=== PATIENT | male | born 1970 | race African-American/Black ===

== ENCOUNTER → 2016-12-20 | Outpatient (REF) | payer OTHER ==
[2016-12-20 12:46] LABS: LUTEINIZING HORMONE 4.3 mIU/mL (1.5-9.3); PROLACTIN 7.5 NG/ML (2.1-17.7)
[2016-12-20 12:47] LABS: ESTRADIOL 37.2 PG/ML (<39.8); FOLLICLE STIMULATING HORMONE 3.3 mIU/mL (1.4-18.1)
[2016-12-22 00:07] LABS: SEX HORMONE BINDING GLOBULIN 13.8 nmol/L (16.5-55.9)
== END ==
LOC: M LABSMT 09:01
PROVIDERS: ATTEND Nurse Practitioner Women's Health
DX: E29.1 Testicular hypofunction (principal)

== ENCOUNTER → 2017-03-31 | Outpatient (REF) | payer OTHER ==
[2017-03-31 12:20] LABS: PSA SCREENING 1.26 NG/ML (< 4.0)
== END ==
LOC: M SFHCLERA 10:34
DX: E29.1 Testicular hypofunction (principal)
CPT/HCPCS: 84403

== ENCOUNTER → 2017-11-06 | Outpatient (CLI) | payer OTHER ==
[2017-11-06 17:57] LABS: HEMATOCRIT 49.8 % (42.0-52.0)
[2017-11-06 18:08] LABS: PSA SCREENING 1.81 NG/ML (< 4.0)
[2017-11-09 00:13] LABS: TESTOSTERONE FREE (DIRECT) 32.3 pg/mL (6.8-21.5)
== END ==
LOC: M LRY 13:04
DX: Z12.5 Encounter for screening for malignant neoplasm of prostate (principal); E29.1 Testicular hypofunction
CPT/HCPCS: 84403

== ENCOUNTER → 2017-11-08 | Outpatient (CLI) | payer OTHER | LOC: M SMT 11:43 | DX: N52.9 Male erectile dysfunction, unspecified (principal) | CPT/HCPCS: 84403 ==

== ENCOUNTER → 2018-03-14 | Outpatient (REF) | payer OTHER ==
[2018-03-14 20:23] LABS: HEMATOCRIT 52.1 % (42.0-52.0)
[2018-03-14 20:44] LABS: ESTRADIOL 19.2 PG/ML (<39.8)
[2018-03-17 00:07] LABS: TESTOSTERONE FREE (DIRECT) 17.7 pg/mL (6.8-21.5)
== END ==
LOC: M LABSMT 15:51
DX: Z12.5 Encounter for screening for malignant neoplasm of prostate (principal); E29.1 Testicular hypofunction
CPT/HCPCS: 84403

== ENCOUNTER 2018-04-17 06:54 | Day surgery (SDC) | payer OTHER ==
[~2018-04-17] VITALS: Ht 175.3 cm; Wt 106.6 kg
[~2018-04-17 06:54] MED LIST: ANAS1TAB2 PO; COLA100C5 PO; LIDOCAINE 1% MDV 20ML VIAL SQ PRN; NAPR-885 PO; PERCOCET PO; TEST200I14 IM; VALA500T5 PO
[2018-04-17] MEDS ORDERED: LR 1,000 ML IV ONE (07:45)
[2018-04-17] MEDS ORDERED: fentaNYL 100 MCG/2 ML INJECTION (J3010) As Ordered ONE (07:48)
[2018-04-17] MEDS ORDERED: CIPRODEX OTIC SUSP 7.5ML As Ordered ONE (08:17)
[2018-04-17] MEDS ORDERED: dexameTHASONE 4 MG/ML 1ML VIAL (J1100) As Ordered ONE (08:47)
[2018-04-17] MEDS ORDERED: ONDANSETRON 4MG/2ML VIAL (J2405) As Ordered ONE (08:53)
[2018-04-17] MEDS ORDERED: MIDAZOLAM INJ 2 MG/2 ML VIAL (J2250) As Ordered ONE (08:54)
[2018-04-17] MEDS ORDERED: PROPOFOL 200 MG/20 ML VIAL As Ordered ONE (08:54)
[2018-04-17] MEDS ORDERED: LIDOCAINE 2% INJ 100 MG/5 ML SDV (FOR ANES.) As Ordered ONE (08:54)
[2018-04-17] MEDS ORDERED: IBUPROFEN 800 MG TAB PO PRN (09:30)
[2018-04-17] MEDS ORDERED: PERCOCET 5MG/325MG TAB PO PRN (09:30)
[2018-04-17] MEDS ORDERED: LR 1,000 ML IV SCH (09:30)
[2018-04-17] MEDS ORDERED: fentaNYL 100 MCG/2 ML INJECTION (J3010) IV PRN (09:30)
[2018-04-17] MEDS ORDERED: ONDANSETRON 4MG/2ML VIAL (J2405) IV PRN (09:30)
[2018-04-17 09:40] VITALS: BP 128/79
--- NOTE | 2018-05-08 17:54 | RO ---
DATE OF PROCEDURE: 04/17/2018 PREPROCEDURE DIAGNOSIS: Left chronic secretory otitis media. POSTPROCEDURE DIAGNOSIS: Left chronic secretory otitis media. PROCEDURE: Left myringotomy tube. SURGEON: Dr. Terence Majano COMPLIANCE MGR: ANESTHESIA: INDICATIONS: This is a 48-year-old who first noted hearing loss more than a year ago. It was diagnosed with audiology, was found to be conductive hearing loss. On examination, it demonstrated a flat type B tympanogram with middle ear effusion associated with a 30 decibel conductive hearing loss. DESCRIPTION OF PROCEDURE: Satisfactory mask anesthesia administered. The left ear examined and cleaned under the microscope. Neovascularization with some modest tympanosclerosis was noted and an anterior-superior myringotomy was made. Serous fluid was suctioned from the middle ear. A beveled Bobbin tube was inserted, Ciprodex drops instilled. He tolerated the procedure well, was sent to recovery in satisfactory condition. He will be seen back in the office in 1 week.
== END 2018-04-17 10:04 | disposition home or self-care (01) ==
LOC: M SDC 06:54
PROVIDERS: ATTEND Specialist
DX: H65.22 Chronic serous otitis media, left ear (principal); M12.9 Arthropathy, unspecified; M54.9 Dorsalgia, unspecified; G47.30 Sleep apnea, unspecified
CPT/HCPCS: 69436; J1100; J2250; J2405; J3010

== ENCOUNTER → 2018-09-19 | Outpatient (REF) | payer OTHER ==
[~2018-09-19] MED LIST changes: -LIDOCAINE 1% MDV 20ML VIAL SQ PRN
[2018-09-19 17:27] LABS: ALBUMIN 4.1 GM/DL (3.2-5.2); ALT/SGPT 70 U/L (12-78); BILIRUBIN,TOTAL 1.1 MG/DL (0.2-1.0); BLOOD UREA NITROGEN 13 MG/DL (7-18); CALCIUM LEVEL 9.5 MG/DL (8.5-10.1); CARBON DIOXIDE LEVEL 27 MEQ/L (21-32); CHLORIDE LEVEL 105 MEQ/L (98-107); GLOMERULAR FILTRATION RATE > 60.0 (>60); GLUCOSE, FASTING 95 MG/DL (70-100); POTASSIUM SERUM 4.3 MEQ/L (3.5-5.1); SODIUM LEVEL 140 MEQ/L (136-145); TOTAL PROTEIN 7.7 GM/DL (6.4-8.2)
== END ==
LOC: M SFHCLERA 12:30
PROVIDERS: ATTEND Nurse Practitioner Women's Health
DX: E29.1 Testicular hypofunction (principal); Z12.5 Encounter for screening for malignant neoplasm of prostate
CPT/HCPCS: 80053; 82670; 84402; 84403; G0103

== ENCOUNTER → 2019-03-21 | Outpatient (REF) | payer OTHER ==
[2019-03-21 16:47] LABS: HEMATOCRIT 48.1 % (42.0-52.0); HEMOGLOBIN 15.9 g/dl (13.5-17.5); MEAN CORPUSCULAR HEMOGLOBIN 27.5 pg (27.0-33.0); MEAN CORPUSCULAR HGB CONC 33.1 g/dl (32.0-36.5); MEAN CORPUSCULAR VOLUME 83.2 fl (80.0-96.0); PLATELET COUNT, AUTOMATED 158 10^3/uL (150-450); RED BLOOD COUNT 5.78 10^6/uL (4.30-6.10); WHITE BLOOD COUNT 4.5 10^3/uL (4.0-10.0)
[2019-03-21 16:52] LABS: ALBUMIN 4.6 GM/DL (3.2-5.2); ALT/SGPT 55 U/L (12-78); BILIRUBIN,TOTAL 0.7 MG/DL (0.2-1.0); BLOOD UREA NITROGEN 9 MG/DL (7-18); CALCIUM LEVEL 9.3 MG/DL (8.5-10.1); CARBON DIOXIDE LEVEL 31 MEQ/L (21-32); CHLORIDE LEVEL 103 MEQ/L (98-107); CREATININE FOR GFR 1.47 MG/DL (0.70-1.30); GLOMERULAR FILTRATION RATE > 60.0 (>56); GLUCOSE, FASTING 131 MG/DL (70-100); SODIUM LEVEL 139 MEQ/L (136-145); TOTAL PROTEIN 7.6 GM/DL (6.4-8.2)
[2019-03-22 11:04] LABS: ESTRADIOL 44.7 PG/ML (<39.8)
[2019-03-23 15:17] LABS: TESTOSTERONE FREE (DIRECT) 8.5 pg/mL (7.2-24.0)
== END ==
LOC: M LABSMT 12:40
PROVIDERS: ATTEND Nurse Practitioner Women's Health
DX: Z12.5 Encounter for screening for malignant neoplasm of prostate (principal); E29.1 Testicular hypofunction
CPT/HCPCS: 80053; 82670; 84402; 84403; 85027; G0103

== ENCOUNTER → 2019-04-17 | Outpatient (REF) | payer OTHER ==
[~2019-04-17] MED LIST changes: +AMLO5TAB6 PO; +EUCECRE8 TOP; +FISH1000 PO; +HYDR1CRE30 TOP; +NORV5TAB PO; +VIAG100T PO; +VOLT1GEL15 TOP; +fish oil PO; +vitamin d PO
[2019-04-17 14:06] LABS: APPEARANCE, URINE CLEAR (CLEAR); BACTERIA, URINE AUTO NEGATIVE (NEGATIVE); BILIRUBIN, URINE AUTO NEGATIVE (NEGATIVE); BLOOD, URINE BLOOD NEGATIVE (NEGATIVE); COLOR, URINE YELLOW (YELLOW); GLUCOSE, URINE (UA) AUTO NEGATIVE (NEGATIVE); KETONE, URINE AUTO NEGATIVE (NEGATIVE); LEUKOCYTE ESTERASE, URINE AUTO NEGATIVE (NEGATIVE); MUCUS, URINE SMALL (NEGATIVE); NITRITE, URINE AUTO NEGATIVE (NEGATIVE); PROTEIN, URINE AUTO NEGATIVE (NEGATIVE); RBC, URINE AUTO 0 /HPF (0-3); SPECIFIC GRAVITY URINE AUTO 1.014 (1.002-1.035); SQUAMOUS EPITHELIAL CELL UR AU 0 /HPF (0-6); UROBILINOGEN, URINE AUTO 0.2 mg/dL (0.0-2.0); WBC, URINE AUTO 0 /HPF (0-3)
== END ==
LOC: M SMT 13:20
PROVIDERS: ATTEND Nurse Practitioner Women's Health
DX: R31.29 Other microscopic hematuria (principal)
CPT/HCPCS: 81001; 87086; G0463

== ENCOUNTER 2019-04-30 20:58 | Inpatient (IN) | payer OTHER ==
[~2019-04-30] VITALS: Ht 175.3 cm; Wt 110.5 kg
[~2019-04-30 20:58] MED LIST changes: -AMLO5TAB6 PO; -EUCECRE8 TOP; -FISH1000 PO; -HYDR1CRE30 TOP; -NORV5TAB PO; -VIAG100T PO; -VOLT1GEL15 TOP; -fish oil PO; -vitamin d PO
[2019-04-30] MEDS ORDERED: NORV5TAB PO (21:03)
[2019-04-30] MEDS ORDERED: vitamin d PO (21:20)
[2019-04-30] MEDS ORDERED: fish oil PO (21:20)
[2019-04-30 22:21] LABS: HEMATOCRIT 51.3 % (42.0-52.0); HEMOGLOBIN 16.7 g/dl (13.5-17.5); MEAN CORPUSCULAR HGB CONC 32.6 g/dl (32.0-36.5); MEAN CORPUSCULAR VOLUME 82.9 fl (80.0-96.0); PLATELET COUNT, AUTOMATED 163 10^3/uL (150-450); RED BLOOD COUNT 6.19 10^6/uL (4.30-6.10); WHITE BLOOD COUNT 4.4 10^3/uL (4.0-10.0)
[2019-04-30 22:31] LABS: AMPHETAMINES LEVEL URINE NEGATIVE (NEGATIVE); BARBITURATES URINE NEGATIVE (NEGATIVE); BENZODIAZEPINES URINE NEGATIVE (NEGATIVE); CANNABINOIDS URINE NEGATIVE (NEGATIVE); COCAINE METABOLITE URINE NEGATIVE (NEGATIVE); METHADONE URINE NEGATIVE (NEGATIVE); OPIATES URINE NEGATIVE (NEGATIVE); PHENCYCLIDINE URINE NEGATIVE (NEGATIVE)
[2019-04-30] MEDS ORDERED: EUCECRE8 TOP (22:44)
[2019-04-30] MEDS ORDERED: FISH1000 PO (22:44)
[2019-04-30] MEDS ORDERED: VOLT1GEL15 TOP (22:44)
[2019-04-30] MEDS ORDERED: AMLO5TAB6 PO (22:44)
[2019-04-30] MEDS ORDERED: HYDR1CRE30 TOP (22:44)
[2019-04-30] MEDS ORDERED: VIAG100T PO (22:44)
[2019-04-30 22:54] LABS: ACETAMINOPHEN LEVEL < 2.0 UG/ML (10.0-30.0); ALBUMIN 4.6 GM/DL (3.2-5.2); ALT/SGPT 92 U/L (12-78); BILIRUBIN,DIRECT 0.3 MG/DL (0.0-0.2); BLOOD UREA NITROGEN 11 MG/DL (7-18); CALCIUM LEVEL 9.4 MG/DL (8.5-10.1); CARBON DIOXIDE LEVEL 27 MEQ/L (21-32); CHLORIDE LEVEL 104 MEQ/L (98-107); CREATININE FOR GFR 1.54 MG/DL (0.70-1.30); ETHYL ALCOHOL (ETHANOL) 0.006 % (0.000-0.010); GLOMERULAR FILTRATION RATE > 60.0 (>56); GLUCOSE, FASTING 107 MG/DL (70-100); SALICYLATE LEVEL < 1.7 MG/DL (5.0-30.0); SODIUM LEVEL 139 MEQ/L (136-145); TOTAL PROTEIN 8.1 GM/DL (6.4-8.2)
--- NOTE | 2019-05-01 07:14 | ECGEPIP ---
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
[2019-05-01] MEDS ORDERED: VITA100054 PO (08:44)
[2019-05-01] MEDS ORDERED: valACYclovir HCL 500 MG TAB PO SCH (09:00)
[2019-05-01] MEDS ORDERED: HYDROCORTISONE 1% CREAM 30 GM TOP PRN (09:00)
[2019-05-01] MEDS ORDERED: valACYclovir HCL 500 MG TAB PO ONE (09:00)
[2019-05-01] MEDS ORDERED: ENTER DRUG NAME HERE (PATIENT'S OWN MED) PO SCH (09:15)
[2019-05-01] MEDS: amLODIPine 5 MG TAB PO ONE ×2 (10:04→10:07)
[2019-05-01] MEDS ORDERED: ACETAMINOPHEN TAB 650MG DOSE (2X325MG) PO PRN (12:15)
[2019-05-01] MEDS ORDERED: MOM 30ML SUSPENSION UDC PO PRN (12:15)
[2019-05-01] MEDS ORDERED: IBUPROFEN 400 MG TAB PO PRN (12:15)
[2019-05-01] MEDS ORDERED: MAALOX 30 ML SUSP *UDC PO PRN (12:15)
[2019-05-01] MEDS ORDERED: diphenhydrAMINE 25 MG CAP PO PRN (12:15)
[2019-05-01 12:48] VITALS: BP 159/89
[2019-05-01] MEDS: NICOTINE 14 MG/24 HR TRANSDERMAL TD SCH (14:45)
[2019-05-01 16:00] VITALS: BP 134/86
--- NOTE | 2019-05-01 16:25 | HPEPDOC ---
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 Patient reported that he got into an argument with his and had indicated that he was going to harm himself. Patient was then brought to the hospital by police. Patient has been admitted to the inpatient mental health unit under the care of psychiatry. Hospitalist service was consulted for medical screening evaluation. Currently patient denies any headache, nausea, vomiting, chest pain, shortness of breath, palpitations, cough, constipation, diarrhea, urinary discomfort or fever/chills. Patient does report some abdominal discomfort that he attributes to medications. Patient reports his appetite is normal, but does report some weight loss after he stopped going to the gym. Home Medications Scheduled Amlodipine Besylate (Amlodipine Besylate) 5 Mg Tablet, 5 MG PO QHS, (Reported) Anastrozole (Anastrozole) 1 Mg Tab, 0.5 MG PO 3XW, (Reported) TAKES ON MONDAY, MONDAY AND MONDAY Cholecalciferol (Vitamin D3) (Vitamin D3) 1,000 Unit Capsule, 1 CAP PO DAILY, (Reported) [place]-3 Fatty Acids/Fish Oil (Fish Oil 1,000 mg Capsule) 1 Each Capsule, 1,000 MG PO QHS, (Reported) Testosterone Cypionate (Testosterone Cypionate) 200 Mg/Ml Inj, 200 MG IM ASDIRECTED, (Reported) TAKES EVERY 10 DAYS Valacyclovir HCl (Valacyclovir) 500 Mg Tab, 500 MG PO DAILY, (Reported) Scheduled PRN Diclofenac Sodium (Voltaren) 100 Gm Gel..gram., 1 DOSE TOP QID PRN for PAIN, (Reported) USES ON KNEES AND ANKLES NEEDED FOR PAIN Hydrocortisone (Hydrocortisone) 28 Gm Cream..g., 1 DOSE TOP BID PRN for RASH, (Reported) USES ON UNDER ARMS NEEDED FOR RASH Lanolin Alcohol/Mo/W.pet/[place] (Eucerin Creme) 454 Gm Cream..g., 1 DOSE TOP BID PRN for DRY SKIN, (Reported) USES ON HANDS NEEDED Sildenafil Citrate (Viagra) 100 Mg Tablet, 100 MG PO ASDIRECTED PRN for ERECTILE DYSFUNCTION, (Reported) Allergies Coded Allergies: No Known Allergies (Unverified , 04/30/19) Past Medical History Medical History HTN, CKD3, 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 03/2018; plan for additional surgery in the near future Left ear tube placement Family History - Mother with history of COPD, heart disease from a genetic problem - Father with a history of DM2 Social History - Denies the use of illicit drugs; Reports that he drinks alcohol occasionally (1-2 drinks / 3 times a week), rare tobacco smoker - Denies recent travel or sick contacts - Lives with - Occupation; [email or web address] - tow truck driver, now desk work Review of Systems Other systems 10 point review of systems complete, all negative otherwise stated in HPI Vital Signs - Vitals: BP 159/89, HR 64, RR 18, Sat 96%RA, Temp 97.6F - General: Lying in bed, No acute distress, Speaking in full sentences, AAOx3 - HEENT: NC, AT, PERRLA - CVS: RRR, +S1S2 - Lungs: Fair air entry bilaterally, No appreciable wheezing / rales / rhonchi - Abdomen: Soft, Non-distended, Non-tender, + Bowel sounds x 4 - Extremities: No lower extremity edema, No calf tenderness - Neuro: No focal motor or sensory deficit - Skin: No visible rashes Laboratory Data Labs 24H Laboratory Tests 2 04/30/19 21:35: Nucleated Red Blood Cells % (auto) 0.0, Anion Gap 8, Glomerular Filtration Rate > 60.0, Calcium Level 9.4, Total Bilirubin 1.0, Direct Bilirubin 0.3H, Aspartate Amino Transf (AST/SGOT) 38H, Alanine Aminotransferase (ALT/SGPT) 92H, Alkaline Phosphatase 57, Total Protein 8.1, Albumin 4.6, Albumin/Globulin Ratio 1.31, Thy roid Stimulating Hormone (TSH) 1.440, Salicylates Level < 1.7L, Acetaminophen Level < 2.0L, Ethyl Alcohol Level 0.006 04/30/19 21:45: Urine Opiates Screen NEGATIVE, Urine Methadone Screen NEGATIVE, Urine Barbiturates Screen NEGATIVE, Urine Phencyclidine Screen NEGATIVE, Urine Am phetamines Screen NEGATIVE, Urine Benzodiazepines Screen NEGATIVE, Urine Cocaine Metabolite Screen NEGATIVE, Urine Cannabinoids Screen NEGATIVE CBC/BMP Laboratory Tests 04/30/19 21:35 Plan / VTE VTE Prophylaxis Ordered?: Yes Plan Plan Suicidal ideation - Presented to the emergency room after being brought in by police for suicidal ideation after an altercation with his - Managed by psychiatry HTN - BP moderately controlled - c/w Amlodipine CKD3 - Cr appears to be at baseline - Avoid nephrotoxic medications; discontinued Ibuprofen 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
[2019-05-01] MEDS: amLODIPine 5 MG TAB PO SCH (20:35)
[2019-05-01] MEDS: traZODone 50 MG TAB PO PRN (20:35)
[2019-05-02 06:24] VITALS: BP 142/82
[2019-05-02] MEDS: NICOTINE 14 MG/24 HR TRANSDERMAL TD SCH (09:00)
[2019-05-02] MEDS: valACYclovir HCL 500 MG TAB PO SCH (09:31)
[2019-05-02 10:13] VITALS: BP 142/82
--- NOTE | 2019-05-02 10:42 | MHHPEPDOC ---
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 The patient had been brought and admitted out of an abundance of caution, however, he had quickly redacted the statements and felt remorse for making such brash statements. He reported that he had stated that as he was in an argument and had not thought well about the statement itself. When I met with the patient he reported that he had made the statement, but had suffered no mental health troubles in the past. He reported that otherwise he felt well and explained that he was in an argument with for last several days after he reportedly found some disturbing information on her phone suggesting she might be unfaithful to him. They had gotten into some multiple arguments of which was the reported context for the statement. He reports that otherwise he arvin well and that he has a happy marriage. Review Of Systems Depression: The patient denies any episodes of unprovoked depressed mood associated with neurovegetative symptoms lasting longer than 2 weeks with symptoms present nearly everyday. Anxiety: The patient denies any excessive worry associated with physical symptoms. They deny any experience of discreet panic in the past. Marnie: The patient denies any episodes of euphoria/dysphoria associated with decreased need for sleep, hedonism, talkatively or impulsivity lasting longer than 5 days. Psychotic: The patient denies any experiences of auditory or visual hallucinations. They deny any episodes of paranoia or delusional thinking in the past Trauma: The patient denies any traumatic events associated with nightmares or intrusive thoughts. Borderline: The patient screens negative for borderline personality at this junction. Past Psychiatric History The patient reports no history of psychiatric admissions, medication trials or current follow up. Allergies Please see below. Family Psychiatric History Reports having a mother who attempted suicide by overdose at 13 but no other issues of mental health or suicide in the family. 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 He identifies as heterosexual. Subsists on income, got a associates degree in [place], grew up with close relationship with parents who were , has 6 sisters, 3 are alive. Denies any history of trauma or abuse growing up. Substance Abuse History The patient denies any excessive alcohol use, tobacco or illicit drug use, denies history of substance use treatment. Medical History Has history of hypertension and mild diabetes. Mental Status Examination General: Well dressed with good hygiene Speech: Spontaneous and fluid Thought processes: Linear and logical MSK: Smooth and coordinated gait, no signs of tremors or involuntary orofacial movements Thought content: Future orientated Abstract reasoning, and computation: Intact Description of associations: Intact Description of abnormal or psychotic thoughts: Denies any suicidal or homicidal ideation. Denies any auditory or visual hallucinations. Does not appear to be responding to internal stimuli. Does not appear to be endorsing any bizarre or paranoid ideation. Judgment: fair Insight: fair Orientation: Alert and orientated 3 Cognition: Grossly normal Recent and remote memory: Intact Attention span and concentration: Intact Fund of knowledge: Adequate Mood: "okay" Affect: Euthymic with a full range Diagnoses Unspecified trauma/stress related disorder. Assessment and Plan The patient, a 49-year-old man with no past psychiatric history, presents after reportedly making a statement in an argument, however he has reported the situation and after 48 hours of observation he will likely be released since he has been denying suicidal or homicidal ideation throughout the entirety of his presentation as he will not likely meet criteria in my opinion to extend him past 48 hours of observation. Disposition Discharge tomorrow if patient remains stable. Problem List 1. risk for suicide. 2. Ineffective coping. Initial Treatment Plan 1. Patient was admitted on a 9.39 legal status. 2. Complete history was obtained. 3. With patients permission, family will be contacted and database will be expanded. 4. Patients medication regimen will be reviewed and changed accordingly. 5. Patient will be provided with protected environment. 6. Patient will be treated with individual, group, and milieu therapies. 7. Patient will receive supportive psych-education. 8. Discharge planning will commence immediately. 9. Outpatient follow-up treatment will be strongly recommended. 10. The initial treatment plan will focus initially on: Estimated Length Of Stay 2 days. Time Spent 70 minutes. Vital Signs Vital Signs Date Time Temp Pulse Resp B/P (MAP) Pulse Ox O2 Delivery O2 Flow Rate FiO2 05/02/19 10:13 99.9 79 18 142/82 96 Room Air Medications Scheduled Amlodipine Besylate (Amlodipine Besylate) 5 Mg Tablet, 5 MG PO QHS, (Reported) Anastrozole (Anastrozole) 1 Mg Tab, 0.5 MG PO 3XW, (Reported) TAKES ON MONDAY, MONDAY AND MONDAY Cholecalciferol (Vitamin D3) (Vitamin D3) 1,000 Unit Capsule, 1 CAP PO DAILY, (Reported) [place]-3 Fatty Acids/Fish Oil (Fish Oil 1,000 mg Capsule) 1 Each Capsule, 1,000 MG PO QHS, (Reported) Testosterone Cypionate (Testosterone Cypionate) 200 Mg/Ml Inj, 200 MG IM ASDIRECTED, (Reported) TAKES EVERY 10 DAYS Valacyclovir HCl (Valacyclovir) 500 Mg Tab, 500 MG PO DAILY, (Reported) Scheduled PRN Diclofenac Sodium (Voltaren) 100 Gm Gel..gram., 1 DOSE TOP QID PRN for PAIN, (Reported) USES ON KNEES AND ANKLES NEEDED FOR PAIN Hydrocortisone (Hydrocortisone) 28 Gm Cream..g., 1 DOSE TOP BID PRN for RASH, (Reported) USES ON UNDER ARMS NEEDED FOR RASH Lanolin Alcohol/Mo/W.pet/[place] (Eucerin Creme) 454 Gm Cream..g., 1 DOSE TOP BID PRN for DRY SKIN, (Reported) USES ON HANDS NEEDED Sildenafil Citrate (Viagra) 100 Mg Tablet, 100 MG PO ASDIRECTED PRN for ERECTILE DYSFUNCTION, (Reported) Allergies Coded Allergies: No Known Allergies (Unverified , 04/30/19) KEVIN LARRY DO May 02, 2019 10:42
[2019-05-02 15:37] VITALS: BP 143/85
[2019-05-02] MEDS: traZODone 50 MG TAB PO PRN (20:21)
[2019-05-02 20:22] VITALS: BP 130/88
[2019-05-02] MEDS: amLODIPine 5 MG TAB PO SCH (20:22)
[2019-05-03 06:05] VITALS: BP 141/76
[2019-05-03] MEDS: NICOTINE 14 MG/24 HR TRANSDERMAL TD SCH (08:56)
[2019-05-03] MEDS: valACYclovir HCL 500 MG TAB PO SCH (08:56)
--- NOTE | 2019-05-03 10:08 | MHDSPDOC ---
[facility] Discharge Summary Discharge Summary DATE OF ADMISSION: May 01, 2019 at 12:08 DATE OF DISCHARGE: 05/03/19 Discharge Kaiden Mata MRN: N/A Date of : N/A Date of Service: 05/03/2019 Diagnoses Unspecified trauma/stress related disorder. 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 The patient had been brought and admitted out of an abundance of caution, however, he had quickly redacted the statements and felt remorse for making such brash statements. He reported that he had stated that as he was in an argument and had not thought well about the statement itself. When I met with the patient he reported that he had made the statement, but had suffered no mental health troubles in the past. He reported that otherwise he felt well and in the context for last several days after he reportedly found some disturbing information on her phone suggesting she might be unfaithful to him. They had gotten into some multiple arguments of which was the reported context for the statement. He reports that otherwise he arvin well and that he has a happy marriage. Consultants Involved Hospitalist/PCP screening Treatment and Progress On The Unit The patient was admitted to the inpatient mental health unit and observed with no medication changes. The patient was observed for 48 hours. He had no suicidal or homicidal ideation, was friendly, amenable and attended all groups with no behavioral problems. Thus, after getting to 48 hours, the patient requested just declined a voluntary extension of his admission and did not meet involuntary criteria and thus was discharged home. Discharge Assessment 49-year-old man with like the difficulties after a situational disturbance and an argument with his , presents and is observed for 48 hours, subsequently demonstrates no suicidal or homicidal ideation. He has a normal mental status exam and is friendly amenable and does not meet involuntary criteria on day of discharge and discharged in good drake. Mental Status Examination General: Well dressed with good hygiene Speech: Spontaneous and fluid Thought processes: Linear and logical MSK: Smooth and coordinated gait, no signs of tremors or involuntary orofacial movements Thought content: Future orientated Abstract reasoning, and computation: Intact Description of associations: Intact Description of abnormal or psychotic thoughts: Denies any suicidal or homicidal ideation. Denies any auditory or visual hallucinations. Does not appear to be responding to internal stimuli. Does not appear to be endorsing any bizarre or paranoid ideation. Judgment: fair Insight: fair Orientation: Alert and orientated 3 Cognition: Grossly normal Recent and remote memory: Intact Attention span and concentration: Intact Fund of knowledge: Adequate Mood: "okay" Affect: Euthymic with a full range Follow Up The social work team worked during the predischarge meeting in order to evaluate for further issues of lethality address them fully before discharge. They worked on safety planning with the patient's family members in order to ensure that the patient will have a safe and effective discharge. Time Spent The amount of time spent in the coordination of care for this patient was approximately 40 minutes. Monday Vital Signs/I&Os Vital Signs Date Time Temp Pulse Resp B/P (MAP) Pulse Ox O2 Delivery O2 Flow Rate FiO2 05/03/19 06:05 99.1 62 18 141/76 (97) 05/02/19 10:13 96 Room Air Medications Scheduled Amlodipine Besylate (Amlodipine Besylate) 5 Mg Tablet, 5 MG PO QHS, (Reported) Anastrozole (Anastrozole) 1 Mg Tab, 0.5 MG PO 3XW, (Reported) TAKES ON MONDAY, MONDAY AND MONDAY Cholecalciferol (Vitamin D3) (Vitamin D3) 1,000 Unit Capsule, 1 CAP PO DAILY for 30 Days, #30 (Reported) [place]-3 Fatty Acids/Fish Oil (Fish Oil 1,000 mg Capsule) 1 Each Capsule, 1,000 MG PO QHS, (Reported) Testosterone Cypionate (Testosterone Cypionate) 200 Mg/Ml Inj, 200 MG IM ASDIRECTED, (Reported) TAKES EVERY 10 DAYS Valacyclovir HCl (Valacyclovir) 500 Mg Tab, 500 MG PO DAILY, (Reported) Scheduled PRN Diclofenac Sodium (Voltaren) 100 Gm Gel..gram., 1 DOSE TOP QID PRN for PAIN, (Reported) USES ON KNEES AND ANKLES NEEDED FOR PAIN Hydrocortisone (Hydrocortisone) 28 Gm Cream..g., 1 DOSE TOP BID PRN for RASH, (Reported) USES ON UNDER ARMS NEEDED FOR RASH Lanolin Alcohol/Mo/W.pet/[place] (Eucerin Creme) 454 Gm Cream..g., 1 DOSE TOP BID PRN for DRY SKIN, (Reported) USES ON HANDS NEEDED Sildenafil Citrate (Viagra) 100 Mg Tablet, 100 MG PO ASDIRECTED PRN for ERECTILE DYSFUNCTION, (Reported) Allergies Coded Allergies: No Known Allergies (Unverified , 04/30/19) KEVIN LARRY DO May 03, 2019 10:08
== END 2019-05-03 13:25 | disposition home or self-care (01) | DRG 880 ==
LOC: M ED 20:58 → M ED INP 05-01 12:08 → M PSY 05-01 12:55
PROVIDERS: ADMIT Psychiatry & Neurology Addiction Medicine; ATTEND Psychiatry & Neurology Addiction Medicine
DX: F43.0 Acute stress reaction (principal); R45.851 Suicidal ideations; Z79.899 Other long term (current) drug therapy; N18.3 Chronic kidney disease, stage 3 (moderate); I11.0 Hypertensive heart disease with heart failure; M19.90 Unspecified osteoarthritis, unspecified site

== ENCOUNTER → 2019-09-30 | Outpatient (REF) | payer OTHER ==
[~2019-09-30] MED LIST changes: +AMLO5TAB6 PO; +EUCECRE8 TOP; +FISH1000 PO; +HYDR1CRE30 TOP; +NORV5TAB PO; +VIAG100T PO; +VITA100054 PO; +VOLT1GEL15 TOP; +fish oil PO; +vitamin d PO
[2019-09-30 12:39] LABS: HEMATOCRIT 49.1 % (42.0-52.0); HEMOGLOBIN 16.3 g/dl (13.5-17.5); MEAN CORPUSCULAR HEMOGLOBIN 27.2 pg (27.0-33.0); MEAN CORPUSCULAR HGB CONC 33.2 g/dl (32.0-36.5); PLATELET COUNT, AUTOMATED 165 10^3/uL (150-450); RED BLOOD COUNT 5.99 10^6/uL (4.30-6.10); WHITE BLOOD COUNT 4.4 10^3/uL (4.0-10.0)
[2019-09-30 12:52] LABS: BLOOD UREA NITROGEN 13 MG/DL (7-18); CALCIUM LEVEL 9.4 MG/DL (8.5-10.1); CARBON DIOXIDE LEVEL 30 MEQ/L (21-32); CHLORIDE LEVEL 103 MEQ/L (98-107); CREATININE FOR GFR 1.57 MG/DL (0.70-1.30); ESTRADIOL 64.5 PG/ML (<39.8); GLOMERULAR FILTRATION RATE > 60.0 (>56); GLUCOSE, FASTING 90 MG/DL (70-100); POTASSIUM SERUM 4.5 MEQ/L (3.5-5.1); SODIUM LEVEL 136 MEQ/L (136-145)
== END ==
LOC: M SFHCLERA 09:11
PROVIDERS: ATTEND Nurse Practitioner Women's Health
DX: N52.9 Male erectile dysfunction, unspecified (principal); Z12.5 Encounter for screening for malignant neoplasm of prostate
CPT/HCPCS: 80048; 82670; 84402; 84403; 85027; G0103

== ENCOUNTER 2020-01-20 06:18 | Day surgery (SDC) | payer OTHER ==
[~2020-01-20] VITALS: Ht 175.3 cm; Wt 108.0 kg
[~2020-01-20 06:18] MED LIST changes: +AMLO1TAB24 PO; -AMLO5TAB6 PO; +CAPS25CR TOP; +LISI2.5T2 PO; +PROT20TA11 PO; +VITA1CAP25 PO
[2020-01-20] MEDS ORDERED: MIDAZOLAM INJ 2MG/2ML VIAL (J2250 PER 1MG) As Ordered ONE (07:00)
[2020-01-20] MEDS ORDERED: fentaNYL 100 MCG/2 ML INJECTION (J3010) As Ordered ONE (07:01)
[2020-01-20] MEDS ORDERED: propofoL 200 MG/20 ML VIAL As Ordered ONE (07:04)
[2020-01-20] MEDS ORDERED: LIDOCAINE 2% 100MG/5ML SDV (FOR ANES.) As Ordered ONE (07:04)
[2020-01-20] MEDS ORDERED: MULTCAP PO (07:13)
[2020-01-20] MEDS ORDERED: CIPRODEX OTIC SUSP 7.5ML As Ordered ONE (07:22)
[2020-01-20] MEDS ORDERED: LR 1,000 ML IV ONE (08:00)
[2020-01-20] MEDS ORDERED: KETOROLAC 60MG 2ML VIAL As Ordered ONE (08:07)
[2020-01-20] MEDS ORDERED: ONDANSETRON 4MG/2ML VIAL As Ordered ONE (08:07)
[2020-01-20] MEDS ORDERED: dexameTHASONE 4 MG/ML 1ML VIAL (J1100 PER 1MG) As Ordered ONE (08:07)
[2020-01-20] MEDS ORDERED: ONDANSETRON 4MG/2ML VIAL IV PRN (08:30)
[2020-01-20] MEDS ORDERED: LR 1,000 ML IV SCH (08:30)
[2020-01-20] MEDS ORDERED: fentaNYL 100 MCG/2 ML INJECTION (J3010) IV PRN (08:30)
[2020-01-20] MEDS ORDERED: oxyCODONE 5MG TAB PO PRN (08:30)
[2020-01-20] MEDS ORDERED: IBUPROFEN 800 MG TAB PO PRN (08:45)
[2020-01-20 09:07] VITALS: BP 129/79
== END 2020-01-20 09:40 | disposition home or self-care (01) ==
LOC: M SDC 06:18
PROVIDERS: ATTEND Specialist
DX: H65.22 Chronic serous otitis media, left ear (principal); I10 Essential (primary) hypertension; K21.9 Gastro-esophageal reflux disease without esophagitis; F41.9 Anxiety disorder, unspecified; F32.9 Major depressive disorder, single episode, unspecified; G47.33 Obstructive sleep apnea (adult) (pediatric); N18.2 Chronic kidney disease, stage 2 (mild); Z79.899 Other long term (current) drug therapy
CPT/HCPCS: 69436; J1100; J1885; J2250; J2405; J3010

== ENCOUNTER → 2020-01-23 | Outpatient (REF) | payer OTHER ==
[~2020-01-23] MED LIST changes: +MULTCAP PO
== END ==
LOC: M LAB REF 16:52
PROVIDERS: ATTEND Internal Medicine Nephrology
DX: N18.31 Chronic kidney disease, stage 3a (principal)

== ENCOUNTER → 2020-01-27 | Outpatient (CLI) | payer OTHER ==
--- NOTE | 2020-01-29 07:03 | REP ---
INDICATION: HYPERTENSIVE CHRONIC KIDNEY DISEASE STAGE 1-4 COMPARISON: None TECHNIQUE: Real time ayon scale ultrasound examination using curved array transducer. FINDINGS: The bilateral kidneys are normal in contour, size, echogenicity and reniform shape. No hydronephrosis, nephrolithiasis, cystic or renal mass lesion appreciated. No perinephric fluid collection. Right kidney measures 10.9 x 6.6 x 4.4 cm. Left kidney measures 10.5 x 4.2 x 5.8 cm. Bladder is collapsed. IMPRESSION: 1. Normal renal ultrasound. 2. <Electronically signed by Isidro Snow > 01/29/20 [id number]
== END ==
LOC: M RAD 13:41
PROVIDERS: ATTEND Internal Medicine Nephrology
DX: I12.9 Hypertensive chronic kidney disease with stage 1 through stage 4 chronic kidney disease, or unspecified chronic kidney disease (principal)

== ENCOUNTER → 2020-05-21 | Outpatient (CLI) | payer OTHER ==
--- NOTE | 2020-05-25 11:06 | ECHO ---
DATE OF PROCEDURE: 05/21/2020 Age: 50 Gender: Male REFERRING PHYSICIAN: Jose F Hardin M.D. PATIENT LOCATION: Outpatient. REASON FOR STUDY: Heart murmur. 2D MEASUREMENTS: IVS 1.1 cm LV 4.7 cm LVPW 1.0 cm LA 3.4 cm Aorta 3.2 cm IVC 1.3 cm DOPPLER MEASUREMENT Peak velocity across the aortic valve 1.8 m/s Peak velocity across the LVOT 1.1 m/s Peak gradient across the aortic valve 12 mmHg Mean gradient across the aortic valve 7 mmHg Mitral E 0.6 Mitral A 0.6 with a ratio of 1.0 2D COMMENTS: 1. Normal left ventricular size, wall thickness, and normal global left ventricular systolic function with a hyperdynamic left ventricle. The estimated left ventricular systolic ejection fraction is 65% to 70%. 2. Normal left atrium. Normal right atrium and right ventricle. 3. The atrial septum appeared to be normal without evidence of defect or shunt. 4. Normal aortic root. 5. No pericardial effusion seen. 6. Mildly calcified aortic valve with normal leaflet excursion. Normal mitral valve and tricuspid valve. The pulmonic valve also appeared to be normal. The proximal pulmonary artery branches were not well visualized. 7. The inferior vena cava was normal in size, central venous pressure is most likely normal. DOPPLER: It detects trace aortic regurgitation, trace mitral regurgitation. Could not calculate pulmonary artery systolic pressure. IMPRESSION: 1. Normal global left ventricular systolic function with a hyperdynamic left ventricle. There are some features of grade 1 left ventricular diastolic dysfunction manifested by abnormal relaxation. 2. Aortic valve sclerosis with trace aortic regurgitation and trivial aortic stenosis. 3. Trace mitral regurgitation. MTDD
== END ==
LOC: M CARPUL 10:24
PROVIDERS: ATTEND Internal Medicine
DX: I08.0 Rheumatic disorders of both mitral and aortic valves (principal)

== ENCOUNTER → 2022-12-21 | Outpatient (REF) | payer OTHER ==
[~2022-12-21] MED LIST changes: -LISI2.5T2 PO; +LISI2.5T9 PO
[2022-12-21 13:35] LABS: APPEARANCE, URINE CLEAR (CLEAR); BACTERIA, URINE AUTO NEGATIVE (NEGATIVE); BILIRUBIN, URINE AUTO NEGATIVE (NEGATIVE); BLOOD, URINE BLOOD NEGATIVE (NEGATIVE); COLOR, URINE YELLOW (YELLOW); GLUCOSE, URINE (UA) AUTO 1+ mg/dL (NEGATIVE); KETONE, URINE AUTO NEGATIVE (NEGATIVE); LEUKOCYTE ESTERASE, URINE AUTO NEGATIVE (NEGATIVE); MUCUS, URINE SMALL (NEGATIVE); NITRITE, URINE AUTO NEGATIVE (NEGATIVE); PROTEIN, URINE AUTO NEGATIVE (NEGATIVE); RBC, URINE AUTO 0 /HPF (0-3); SPECIFIC GRAVITY URINE AUTO 1.018 (1.002-1.035); SQUAMOUS EPITHELIAL CELL UR AU 0 /HPF (0-6); WBC, URINE AUTO 0 /HPF (0-3)
== END ==
LOC: M SMT 13:14
PROVIDERS: ATTEND Physician Assistant
DX: R31.29 Other microscopic hematuria (principal)

== ENCOUNTER → 2024-01-12 | Outpatient (REF) | payer OTHER ==
[2024-01-12 18:19] LABS: APPEARANCE, URINE CLEAR (CLEAR); BACTERIA, URINE AUTO NEGATIVE (NEGATIVE); BILIRUBIN, URINE AUTO NEGATIVE (NEGATIVE); BLOOD, URINE BLOOD NEGATIVE (NEGATIVE); COLOR, URINE YELLOW (YELLOW); GLUCOSE, URINE (UA) AUTO 3+ mg/dL (NEGATIVE); KETONE, URINE AUTO NEGATIVE (NEGATIVE); LEUKOCYTE ESTERASE, URINE AUTO NEGATIVE (NEGATIVE); MUCUS, URINE SMALL (NEGATIVE); NITRITE, URINE AUTO NEGATIVE (NEGATIVE); PROTEIN, URINE AUTO NEGATIVE (NEGATIVE); RBC, URINE AUTO 0 /HPF (0-3); SPECIFIC GRAVITY URINE AUTO 1.022 (1.002-1.035); SQUAMOUS EPITHELIAL CELL UR AU 0 /HPF (0-6); UROBILINOGEN, URINE AUTO 0.2 mg/dL (0.0-2.0); WBC, URINE AUTO 1 /HPF (0-3)
== END ==
LOC: M SMT 17:00
PROVIDERS: ATTEND Physician Assistant
DX: R31.29 Other microscopic hematuria (principal)

== ENCOUNTER → 2024-08-09 | Outpatient (REF) | payer OTHER | LOC: M LAB REF 17:30 | PROVIDERS: ATTEND Nurse Practitioner Family | DX: N18.2 Chronic kidney disease, stage 2 (mild) (principal) ==